=== PATIENT | male | born 1945 | race Caucasian/White ===

== ENCOUNTER 2017-12-17 08:41 | Observation (INO) | payer MEDICARE, BC ==
[~2017-12-17] VITALS: Ht 180.3 cm; Wt 88.5 kg
[~2017-12-17 08:41] MED LIST: LAMO200T PO; LIDOCAINE 1%/EPINEPHrine 1:100,000 SOLN 30 ML VIAL ONE; OXYMETAZOLINE HCL 0.05% 15 ML NASAL SPRAY ONE; TAMS0.4C4 PO
[2017-12-17] MEDS ORDERED: CHLORHEXIDINE GLUCONATE 2 % 1 PACK (2 CLOTHS) TOPICAL PRN (10:00)
[2017-12-17] MEDS ORDERED: INSULIN HUMAN REGULAR 1,000 UNITS/10 ML VIAL SQ PRN (10:00)
[2017-12-17] MEDS ORDERED: AMPICILLIN/SULBAC 3 GM/NS 100 ML IV SCH ×2 (10:00)
[2017-12-17] MEDS ORDERED: SODIUM CHLORID 0.9% 500 ML IV PRN (10:00)
[2017-12-17] MEDS ORDERED: POVIDONE IODINE 5% (ANTISEPSIS KIT) 4 APPLICATIONS EACH NARE PRN (10:00)
[2017-12-17] MEDS ORDERED: LACTATED RINGER'S 1000 ML IV PRN (10:00)
[2017-12-17] MEDS ORDERED: METOPROLOL TARTRATE 25 MG TAB PO PRN (10:00)
[2017-12-17] MEDS ORDERED: ABIL15TA3 PO (10:05)
[2017-12-17] MEDS ORDERED: GABA600T PO (10:05)
[2017-12-17] MEDS ORDERED: PROP10TA6 PO (10:05)
[2017-12-17] MEDS ORDERED: FAMOTIDINE 20 MG/2 ML VIAL ONE (10:20)
[2017-12-17] MEDS ORDERED: MIDAZOLAM HCL 2 MG/2 ML VIAL ONE (10:20)
[2017-12-17] MEDS ORDERED: OXYMETAZOLINE HCL 0.05% 15 ML NASAL SPRAY ONE (11:04)
[2017-12-17] MEDS ORDERED: LIDOCAINE 1%/EPINEPHrine 1:100,000 SOLN 50 ML VIAL ONE (11:04)
[2017-12-17] MEDS ORDERED: MUPIROCIN 2% OINT 22 GM TUBE ONE (11:04)
[2017-12-17] MEDS ORDERED: BACITRACIN TOP OINT 15 GM TUBE ONE (11:07)
[2017-12-17] MEDS ORDERED: fentaNYL CITRATE 250 MCG/5 ML AMP ONE (11:17)
[2017-12-17] MEDS ORDERED: ENALAPRILAT 1.25 MG/ML VIAL ONE (12:54)
[2017-12-17] MEDS ORDERED: MORPHINE SULFATE 2 MG/ML INJ ONE ×2 (13:33→14:24)
[2017-12-17] MEDS ORDERED: MORPHINE SULFATE 8 MG/ML INJ ONE (13:53)
[2017-12-17] MEDS ORDERED: hydrALAZINE HCL 20 MG/ML VIAL ONE (13:56)
[2017-12-17] MEDS ORDERED: ONDANSETRON HCL 4 MG/2 ML VIAL IV PUSH PRN (14:00)
[2017-12-17] MEDS ORDERED: hydrALAZINE HCL 20 MG/ML VIAL IV ONE (15:00)
[2017-12-17] MEDS: LACTATED RINGER'S 1000 ML INJ 1,000 ML IV SCH ×2 (15:00→23:25)
[2017-12-17 15:20] VITALS: O2SAT 100
[2017-12-17] MEDS: ACETAMINOPHEN/HYDROcodone 325 MG/5 MG TAB PO PRN ×2 (15:36→21:26)
[2017-12-17 16:00] VITALS: BP 138/73; PULSE 66; RESP 17; TEMP 97.8; O2SAT 97
[2017-12-17] MEDS: LORazepam 2 MG/ML VIAL IV PUSH PRN (16:25)
--- NOTE | 2017-12-17 17:13 | EKG ---
Date Performed: 12/17/2017 Time Performed: 10:11:52 PTAGE: 72 years EKG: SINUS BRADYCARDIA MARKED LEFT AXIS DEVIATION POSSIBLE ANTERIOR MYOCARDIAL INFARCTION ABNORM AL ECG PREVIOUS TRACING : 02/17/2016 00.09 DOCTOR: Suleiman Brito Interpretating Date/Time 12/17/2017 17:10:41
[2017-12-17 20:00] VITALS: BP 142/78; PULSE 65; RESP 16; TEMP 96.7; O2SAT 100
[2017-12-17] MEDS ORDERED: TAMSULOSIN HCL 0.4 MG CAP PO SCH (21:00)
[2017-12-17] MEDS: AMPICILLIN/SULBAC 3 GM/NS 100 ML IV SCH ×2 (21:25)
[2017-12-17] MEDS: PROPRANOLOL HCL 10 MG TAB PO SCH (21:25)
[2017-12-17] MEDS: lamoTRIgine 100 MG TAB PO SCH (21:25)
[2017-12-17] MEDS: GABAPENTIN 300 MG CAP PO SCH (21:25)
[2017-12-18] VITALS: BP 165/80; PULSE 53; RESP 16; TEMP 96.5; O2SAT 100
[2017-12-18] MEDS: LORazepam 2 MG/ML VIAL IV PUSH PRN (01:07)
[2017-12-18 04:00] VITALS: BP 146/96; PULSE 58; RESP 16; TEMP 97.1; O2SAT 100
[2017-12-18] MEDS: AMPICILLIN/SULBAC 3 GM/NS 100 ML IV SCH ×2 (04:19)
[2017-12-18 07:30] VITALS: O2SAT 96
[2017-12-18] MEDS: PROPRANOLOL HCL 10 MG TAB PO SCH (08:07)
[2017-12-18] MEDS: lamoTRIgine 100 MG TAB PO SCH (08:08)
[2017-12-18] MEDS: GABAPENTIN 300 MG CAP PO SCH (08:08)
[2017-12-18] MEDS ORDERED: ARIPiprazole 15 MG TAB PO SCH (09:00)
[2017-12-18] MEDS ORDERED: PROPOFOL 200 MG/20 ML AMP IV ONE (12:00)
[2017-12-18] MEDS ORDERED: ePHEDrine/NS 25 MG/5 ML SYRINGE IV ONE (12:00)
[2017-12-18] MEDS ORDERED: ONDANSETRON HCL 4 MG/2 ML VIAL IV PUSH ONE (12:00)
[2017-12-18] MEDS ORDERED: LABETALOL HCL 100 MG/20 ML VIAL IV ONE (12:00)
[2017-12-18] MEDS ORDERED: ROCURONIUM INJ 50 MG/5 ML SYRINGE IV PUSH ONE (12:00)
[2017-12-18] MEDS ORDERED: NEOSTIGMINE 3 MG/3 ML SYR IV ONE (12:00)
[2017-12-18] MEDS ORDERED: DEXAMETHASONE SOD PHOS 4 MG/ML VIAL IV ONE (12:00)
[2017-12-18] MEDS ORDERED: GLYCOPYRROLATE 1 MG/5 ML SYRINGE IV PUSH ONE (12:00)
[2017-12-18] MEDS ORDERED: LIDOCAINE HCL 1% PF 5 ML SYRINGE OTHER ONE (12:00)
[2017-12-19] MEDS ORDERED: ALPR.5 PO (11:11)
--- NOTE | 2017-12-29 15:33 | MP ---
cc: AMANDA CONNELL M.D. DATE OF SURGERY: 12/17/2017. PREOPERATIVE DIAGNOSIS: 1. Nasal airway obstruction. 2. Nasal septal deviation. 3. Hypertrophy of inferior turbinates. POSTOPERATIVE DIAGNOSIS: 1. Nasal airway obstruction. 2. Nasal septal deviation. 3. Hypertrophy of inferior turbinates. OPERATIVE PROCEDURE PERFORMED: 1. Open repair nasal septal fracture. 2. Bilateral submucosal resection of inferior turbinates. SURGEON: Amanda Connell MD. INDICATIONS FOR THE PROCEDURE: Documented in the history and physical. DESCRIPTION OF THE PROCEDURE IN DETAIL: The patient was taken to OR 2 and placed in the supine position. Following induction of general anesthesia and intubation, the nose was packed bilaterally with cotton pledgets saturated in 0.05% Oxymetazoline. The septal mucosa and inferior turbinates were injected with a total of 10 mL of 1% Xylocaine with epinephrine 1:100,000 and he was then prepped and draped for surgery. The packing was removed and a hemitransfixion incision was made in the left nasal vestibule, and through this incision the mucosa of septum was elevated bilaterally as far as the junction of the bony and cartilaginous septum and this was followed by removal of a cumulative area of 2.0 x 2.5 cm of the quadrangular cartilage preserving 1.5 cm dorsal and caudal cartilaginous struts. The mucosa was elevated from the bony septum and the maxillary crest and these were removed using the Stephon forceps. The incision was then closed with a running suture of 4-0 chromic and the mucosal layers of septum were approximated to each other with a quilting stitch of 4-0 plain gut. The inferior turbinates were addressed next. They were fractured out medially and a stab incision was made along the anterior end of each turbinate, and through this incision a submucosal pocket was opened medial to the conchal bone using the Mustapha elevator. In this pocket, the Olympus submucosal debrider was inserted and activated both medially and inferiorly. The instrument was then returned into the pocket and the bipolar cautery was activated to control bleeding. Additional cautery was applied to the incision site on each side. The remnants of the inferior turbinates were then re-lateralized to the lateral nasal wall. The nose was packed with 7.5 cm rapid rhino packs each inflated with 7 mL of air and the procedure was terminated. The patient was reversed from anesthesia and taken to recovery in good condition. There were no complications. Blood loss was 100 mL. MD LEDA Mcnulty/RICCARDO /12:00 PM /3:25 PM
== END 2017-12-18 09:14 | disposition home or self-care (01) ==
LOC: PHSDC 08:41 → PH3A 14:46
PROVIDERS: ADMIT Otolaryngology; ATTEND Otolaryngology
DX: J34.89 Other specified disorders of nose and nasal sinuses (principal); J34.2 Deviated nasal septum; J34.3 Hypertrophy of nasal turbinates; R09.81 Nasal congestion; I10 Essential (primary) hypertension
CPT/HCPCS: 00160; 30140; 30520; 93005; 94762; 96361; 96365; 96366; G0378; J0295; J1100; J2060; J2250; J2270; J2405; J2710; J3010; J7120; J0360

== ENCOUNTER 2017-12-19 10:11 | Emergency (ER) | payer MEDICARE, BC ==
[~2017-12-19] VITALS: Ht 180.3 cm; Wt 88.5 kg
[~2017-12-19 10:11] MED LIST changes: +ABIL15TA3 PO; +GABA600T PO; -LIDOCAINE 1%/EPINEPHrine 1:100,000 SOLN 30 ML VIAL ONE; -OXYMETAZOLINE HCL 0.05% 15 ML NASAL SPRAY ONE; +PROP10TA6 PO
[2017-12-19 10:46] VITALS: BP 132/69; PULSE 74; RESP 18; TEMP 97.4; O2SAT 96
[2017-12-19] MEDS ORDERED: ALPR.5 PO (11:11)
--- NOTE | 2017-12-19 11:11 | PD ---
HPI Chief Complaint: Nosebleed Time Seen by Provider: 11:01 Travel History International Travel<30 days: No Contact w/Intl Traveler<30days: No Traveled to known affect area: No History of Present Illness HPI PATIENT HAD SEPTUM SURGERY WITH DR NOLEN (ENT) ON SATURDAY AND D/C WITH NASAL PACKING....PACKING REMOVED ON SATURDAY MORNING.....AFTERWARDS PATIENT STARTED TO HAVE NOSEBLEED WHICH WAS TAKEN CARE OF AT [facility] WITH NASAL SPRAY AND EXTERNAL PRESSURE...THIS ONLY WORKED FOR ABOUT 2HRS THEN PT STARTED TO BLEED FROM NOSE AGAIN. PATIENT RETURNS HERE FOR CARE. DENIES TAKING ANY ANTICOAGULANT INCLUDING ASA ALL:DENIES SIG PMHX:HTN, HYPERLIPIDEMIA, BIPOLAR SIG RECENT:SEPTUM SURGERY (CAUSE OF NOSE BLEEDS) . PFSH Past Medical History Bipolar Disorder: Yes Depression: Yes Cancer: Yes (SKIN CANCER) Cardiovascular Problems: No High Cholesterol: Yes Diabetes: No Endocrine: No Genitourinary: Yes (BPH) Headaches: No (See EMR) Hepatitis: No Hiatal Hernia: No Immune Disorder: No Musculoskeletal: Yes (BACK INURY L1-S2) Neurologic: No Psychiatric: No Reproductive: No Respiratory: Yes (NASAL CONGESTION, SNORING) Thyroid Disease: No Triglycerides - High: Yes Past Surgical History Abdominal Surgery: Yes (hernia repair) AICD: No Body Medical Devices: RODS IN BACK Cardiac Surgery: No Ear Surgery: No Endocrine Surgery: No Eye Surgery: No Genitourinary Surgery: No Gynecologic Surgery: No Joint Replacement: No Oral Surgery: No Pacemaker: No Thoracic Surgery: No Social History Alcohol Use: No Tobacco Use: Yes (1 PPD) Substance Use: No Allergies-Medications (Allergen,Severity, Reaction): Coded Allergies: No Known Allergies (Unverified Allergy, Unknown, 12/17/17) Reported Meds & Prescriptions Reported Meds & Active Scripts Active Xanax (Alprazolam) 0.5 Mg Tab 0.5 Mg PO Q8H PRN 2 Days Reported Gabapentin 600 Mg Tab 600 Mg PO BID Abilify (Aripiprazole) 15 Mg Tab 15 Mg PO DAILY Tamsulosin (Tamsulosin HCl) 0.4 Mg Cap 0.4 Mg PO HS Lamotrigine 200 Mg Tab 200 Mg PO DAILY Review of Systems Except as stated in HPI: all other systems reviewed are Neg General / Constitutional: No: Fever Eyes: No: Visual changes HENT: Positive: Nosebleed Cardiovascular: No: Chest Pain or Discomfort Respiratory: No: Shortness of Breath Gastrointestinal: No: Abdominal Pain Genitourinary: No: Dysuria Musculoskeletal: No: Pain Skin: No Rash Neurologic: No: Weakness Psychiatric: No: Depression Endocrine: No: Polydipsia Hematologic/Lymphatic: No: Easy Bruising Physical Exam Narrative GENERAL: SKIN: Warm and dry. HEAD: Atraumatic. Normocephalic. EYES: Pupils equal and round. No scleral icterus. No injection or drainage. ENT: No nasal bleeding or discharge. Mucous membranes pink and moist. SMALL ANTERIOR EPISTAXIS NOTED BILATERALLY, NO ARTERIAL BLEEDING NO POSTERIOR BLEEDING EITHER NECK: Trachea midline. No JVD. CARDIOVASCULAR: Regular rate and rhythm. RESPIRATORY: No accessory muscle use. Clear to auscultation. Breath sounds equal bilaterally. GASTROINTESTINAL: Abdomen soft, non-tender, nondistended. Hepatic and splenic margins not palpable. MUSCULOSKELETAL: Extremities without clubbing, cyanosis, or edema. No obvious deformities. NEUROLOGICAL: Awake and alert. No obvious cranial nerve deficits. Motor grossly within normal limits. Five out of 5 muscle strength in the arms and legs. Normal speech. PSYCHIATRIC: Appropriate mood and affect; insight and judgment normal. Data Data Last Documented VS Orders Orders Ed Discharge Order (12/19/17 11:12) MDM Medical Decision Making Medical Screen Exam Complete: Yes Emergency Medical Condition: Yes Medical Record Reviewed: Yes Differential Diagnosis EPISTAXIS Narrative Course upon examination, anterior venous epistaxis noted without any apparent arterial component....however due to continue oozing and post surgical who already was treated with pheylephrine and external pressure at another er which failed as patient returns with same complaint...bilateral packing will be performed Procedures Procedure Narrative PLACED BILATERAL RHINOROCKET 5.5 CM AND INFLATED TO 3ML BILATERALLY BECAUSE THERE WAS NO ACTIVE BLEEDING...IF PATIENT CONTINUES TO BLEED HE WAS ADVISED TO RETURN TO ADD 3 MORE CC OF AIR. Diagnosis Primary Impression: ANTERIOR EPISTAXIS S/P PACKING Patient Instructions: Epistaxis (DC), General Instructions Additional Instructions: PLEASE CALL YOUR ENT FOR FURTHER CARE OF YOUR POST OPERATIVE NOSEBLEED. KEEP PACKING IN UNTIL YOU SEE ENT Scripts Alprazolam (Xanax) 0.5 Mg Tab 0.5 MG PO Q8H Y for ANXIETY for 2 Days, #6 TAB 0 Refills Prov: Lightburn,Lui Naresh MD 12/19/17 Disposition: 01 DISCHARGE HOME Condition: Stable Lui Jimenez MD Dec 19, 2017 11:11
== END 2017-12-19 11:30 | disposition home or self-care (01) ==
LOC: PHED 10:11
DX: R04.0 Epistaxis (principal); I10 Essential (primary) hypertension; E78.5 Hyperlipidemia, unspecified; F31.9 Bipolar disorder, unspecified; N40.0 Benign prostatic hyperplasia without lower urinary tract symptoms; F17.200 Nicotine dependence, unspecified, uncomplicated; Z98.890 Other specified postprocedural states; Z85.828 Personal history of other malignant neoplasm of skin; Z87.39 Personal history of other diseases of the musculoskeletal system and connective tissue
CPT/HCPCS: 30901